=== PATIENT | female | born 1955 | race Caucasian/White ===

== ENCOUNTER 2024-08-31 23:12 | Inpatient (IN) | payer MEDICARE ==
[2024-08-31] MEDS ORDERED: Naloxone 0.4 MG/ML SDV IVPUSH PRN (23:14)
[2024-08-31 23:21] LABS: BASOPHILS ABSOLUTE AUTO 0.08 K/uL (0.00-0.10); BASOPHILS PERCENT AUTO 0.8 % (0.1-1.3); EOSINOPHILS ABSOLUTE AUTO 0.93 K/uL (0.00-0.40); EOSINOPHILS PERCENT AUTO 9.1 % (0.0-5.4); HEMATOCRIT 43.1 % (34.3-46.0); HEMOGLOBIN 14.4 g/dL (11.2-15.5); IMMATURE GRAN ABSOLUTE AUTO 0.06 K/uL (0.00-0.23); IMMATURE GRAN PERCENT AUTO 0.6 % (0.0-0.7); LYMPHOCYTES PERCENT AUTO 22.6 % (11.4-47.7); MEAN CORPUSCULAR HEMOGLOBIN 30.1 pg (31.6-35.5); MEAN CORPUSCULAR HGB CONC 33.4 g/dL (31.6-35.5); MEAN CORPUSCULAR VOLUME 90.2 fL (81.4-99.0); MONOCYTES ABSOLUTE AUTO 0.82 K/uL (0.20-0.90); NEUTROPHILS PERCENT AUTO 58.9 % (40.0-78.1); PLATELET COUNT,PLT 268 K/uL (130-375); RED BLOOD CELL COUNT 4.78 M/uL (3.77-5.24); WHITE BLOOD CELL COUNT,WBC 10.2 K/uL (3.2-11.0)
[2024-08-31] MEDS: HYDROmorphone 0.5 MG/0.5 ML Syringe IVPUSH ONE (23:28)
[2024-08-31] MEDS: Ondansetron 4 MG/2 ML SDV IVPUSH ONE (23:28)
[2024-08-31 23:48] LABS: LACTIC ACID 0.6 mmol/L (0.4-2.0)
[2024-08-31 23:55] LABS: A/G RATIO 0.9 (1.2-2.2); ALANINE AMINOTRANSFERASE,ALT 33 U/L (12-78); ALBUMIN 3.5 g/dL (3.4-5.0); ALKALINE PHOSPHATASE 75 U/L (46-116); ANION GAP 8.3 mmol/L (5.0-14.0); ASPARTATE AMNIOTRANSFERASE,AST 29 U/L (15-37); BILIRUBIN TOTAL 0.3 mg/dL (0.2-1.0); BLOOD UREA NITROGEN,BUN 34 mg/dL (7-18); C-REACTIVE PROTEIN 0.78 mg/dL (<0.50); CALCIUM 9.3 mg/dL (8.5-10.1); CARBON DIOXIDE,CO2 28 mmol/L (21-32); CHLORIDE,CL 108 mmol/L (100-108); CREATININE 1.3 mg/dL (0.6-1.0); EST CRCL DRUG DOSING (CG) 35.76 mL/min; ESTIMATED GFR 45 mL/min (>60); GLUCOSE RANDOM 99 mg/dL (74-106); POTASSIUM,K 3.8 mmol/L (3.6-5.2); PROTEIN TOTAL,TP 7.4 g/dL (6.4-8.2); SODIUM,NA 144 mmol/L (140-148)
[2024-08-31] MEDS: Sodium Chloride 0.9% 80 ML IV SCH (23:57)
[2024-08-31] MEDS: Iopamidol 612 MG/ML 100 ML Bottle IV PRN (23:58)
[2024-08-31] MEDS: Sodium Chloride 0.9% 10 ML Syringe FLUSH PRN (23:58)
[2024-09-01] MEDS: Sodium Chloride 0.9% 1,000 ML IV SCH (00:19)
[2024-09-01] MEDS: HYDROmorphone 0.5 MG/0.5 ML Syringe IVPUSH ONE ×2 (00:19→03:28)
[2024-09-01] MEDS: Prochlorperazine 10 MG/2 ML SDV IVPUSH ONE (03:58)
[2024-09-01] MEDS ORDERED: Ondansetron 4 MG/2 ML SDV ONE (04:18)
[2024-09-01] MEDS ORDERED: Glycopyrrolate 0.2 MG/ML 5 ML MDV ONE (04:18)
[2024-09-01] MEDS ORDERED: Succinylcholine 200 MG/10 ML MDV ONE (04:18)
[2024-09-01] MEDS ORDERED: Neostigmine Methylsulfate 10 MG/10 ML MDV ONE (04:18)
[2024-09-01] MEDS ORDERED: Propofol 200 MG/20 ML SDV ONE (04:18)
[2024-09-01] MEDS ORDERED: Dexamethasone 4 MG/ML SDV ONE (04:18)
[2024-09-01] MEDS ORDERED: Rocuronium 50 MG/5 ML Vial ONE (04:18)
[2024-09-01] MEDS ORDERED: fentaNYL 250 MCG/5 ML SDV ONE (04:18)
[2024-09-01] MEDS ORDERED: ceFAZolin 1 GM Vial ONE (04:26)
[2024-09-01] MEDS ORDERED: Lactated Ringers 1,000 ML ONE (04:48)
[2024-09-01] MEDS ORDERED: Naloxone 0.4 MG/ML SDV ONE (06:00)
[2024-09-01] MEDS: Lidocaine 2% 20 ML MDV ONE (06:05)
[2024-09-01] MEDS: Bupivacaine 0.5% 50 ML MDV ONE (06:05)
[2024-09-01] MEDS ORDERED: Benzocaine/Cetylpyridinium/Menthol Lozenge MUCMEM PRN (06:19)
[2024-09-01] MEDS ORDERED: Sodium Chloride 0.9% 10 ML Syringe IV PRN (07:48)
[2024-09-01] MEDS ORDERED: Morphine 2 MG/ML SYRINGE IV PRN (07:48)
[2024-09-01] MEDS ORDERED: Acetaminophen/oxyCODONE 325-5 MG Tab PO PRN (07:49)
[2024-09-01] MEDS ORDERED: Acetaminophen 325 MG Tab PO PRN (07:50)
[2024-09-01] MEDS: Dextrose 5%-Lactated Ringers 1,000 ML IV SCH (07:53)
[2024-09-01] MEDS: ceFAZolin 2 GM in Premix Bag 1 BAG IV ONE (07:56)
[2024-09-01] MEDS: Ondansetron 4 MG/2 ML SDV IVPUSH PRN (09:12)
[2024-09-01] MEDS: ceFAZolin 2 GM in Premix Bag 1 BAG IV SCH (12:40)
== END 2024-09-01 17:50 | disposition home or self-care (01) | DRG 331 ==
LOC: JP.ED 23:12 → JP.SDS 09-01 06:16 → JP.MS 09-01 06:19
PROVIDERS: ADMIT Surgery; ATTEND Surgery
PROC: 0WQF0ZZ Repair Abdominal Wall, Open Approach (ICD-10-PCS; principal; 2024-08-31)
PROC: 5A0935A Assistance with Respiratory Ventilation, Less than 24 Consecutive Hours, High Flow/Velocity Cannula (ICD-10-PCS; principal; 2024-08-31)
PROC: 0DS80ZZ Reposition Small Intestine, Open Approach (ICD-10-PCS; principal; 2024-08-31)
DX: K43.0 Incisional hernia with obstruction, without gangrene (principal); H54.7 Unspecified visual loss; I10 Essential (primary) hypertension; M19.90 Unspecified osteoarthritis, unspecified site; E86.0 Dehydration; E66.09 Other obesity due to excess calories; Z68.39 Body mass index [BMI] 39.0-39.9, adult; Z88.0 Allergy status to penicillin; Z79.899 Other long term (current) drug therapy; Z98.890 Other specified postprocedural states
CPT/HCPCS: 36415; 74177; 80053; 83605; 83690; 85025; 86140; 93005; J0330; J0665; J0690 ×2; J0780; J1100; J1596; J2003; J2310; J2405 ×2; J2704; J2710; J3010; J7030; J7120; Q9967; 93010; 96361; 96374; 96375; 96376; 99284; 99285-25; A9270-GY; J3490; J7121

== ENCOUNTER 2024-09-02 07:22 | Inpatient (IN) | payer MEDICARE ==
[2024-09-02] MEDS ORDERED: Naloxone 0.4 MG/ML SDV IVPUSH PRN ×2 (07:24→12:42)
[2024-09-02] MEDS ORDERED: Ondansetron 4 MG/2 ML SDV ONE ×2 (07:28→10:15)
[2024-09-02] MEDS ORDERED: HYDROmorphone 1 MG/ML Syringe ONE (07:29)
[2024-09-02 07:39] LABS: BASOPHILS ABSOLUTE AUTO 0.03 K/uL (0.00-0.10); BASOPHILS PERCENT AUTO 0.2 % (0.1-1.3); EOSINOPHILS PERCENT AUTO 0.1 % (0.0-5.4); HEMATOCRIT 40.2 % (34.3-46.0); HEMOGLOBIN 13.1 g/dL (11.2-15.5); IMMATURE GRAN ABSOLUTE AUTO 0.07 K/uL (0.00-0.23); IMMATURE GRAN PERCENT AUTO 0.5 % (0.0-0.7); LYMPHOCYTES PERCENT AUTO 11.7 % (11.4-47.7); MEAN CORPUSCULAR HEMOGLOBIN 29.6 pg (31.6-35.5); MEAN CORPUSCULAR HGB CONC 32.6 g/dL (31.6-35.5); MONOCYTES ABSOLUTE AUTO 0.87 K/uL (0.20-0.90); MONOCYTES PERCENT AUTO 6.4 % (3.3-12.6); NEUTROPHILS ABSOLUTE AUTO 11.07 K/uL (1.0-7.6); NEUTROPHILS PERCENT AUTO 81.1 % (40.0-78.1); PLATELET COUNT,PLT 246 K/uL (130-375); RED BLOOD CELL COUNT 4.42 M/uL (3.77-5.24); WHITE BLOOD CELL COUNT,WBC 13.7 K/uL (3.2-11.0)
[2024-09-02] MEDS: Sodium Chloride 0.9% 1,000 ML IV SCH (07:40)
[2024-09-02] MEDS: HYDROmorphone 1 MG/ML Syringe IVPUSH PRN (07:40)
[2024-09-02] MEDS: Ondansetron 4 MG/2 ML SDV IVPUSH ONE (07:40)
[2024-09-02 07:54] LABS: EOSINOPHILS ABSOLUTE AUTO 0.01 K/uL (0.00-0.40)
[2024-09-02 08:00] LABS: A/G RATIO 0.8 (1.2-2.2); ALANINE AMINOTRANSFERASE,ALT 58 U/L (12-78); ALBUMIN 3.1 g/dL (3.4-5.0); ALKALINE PHOSPHATASE 76 U/L (46-116); ANION GAP 8.3 mmol/L (5.0-14.0); ASPARTATE AMNIOTRANSFERASE,AST 43 U/L (15-37); BILIRUBIN TOTAL 0.3 mg/dL (0.2-1.0); BLOOD UREA NITROGEN,BUN 29 mg/dL (7-18); C-REACTIVE PROTEIN 0.66 mg/dL (<0.50); CARBON DIOXIDE,CO2 28 mmol/L (21-32); CHLORIDE,CL 108 mmol/L (100-108); CREATININE 1.2 mg/dL (0.6-1.0); EST CRCL DRUG DOSING (CG) 38.75 mL/min; ESTIMATED GFR 49 mL/min (>60); GLUCOSE RANDOM 94 mg/dL (74-106); MAGNESIUM 2.1 mg/dL (1.8-2.4); POTASSIUM,K 4.2 mmol/L (3.6-5.2); PROTEIN TOTAL,TP 6.8 g/dL (6.4-8.2); SODIUM,NA 144 mmol/L (140-148)
[2024-09-02] MEDS: Sodium Chloride 0.9% 10 ML Syringe FLUSH PRN (08:19)
[2024-09-02] MEDS: Iopamidol 612 MG/ML 100 ML Bottle IV PRN (08:21)
[2024-09-02] MEDS: Sodium Chloride 0.9% 80 ML IV SCH (08:21)
[2024-09-02 08:46] LABS: APPEARANCE,URINE CLEAR (CLEAR); BILIRUBIN,URINE NEGATIVE (NEGATIVE); COLOR,URINE YELLOW (YELLOW); GLUCOSE,URINE NEGATIVE (NEGATIVE); KETONES,URINE NEGATIVE (NEGATIVE); LEUKOCYTE ESTERASE,URINE TRACE (NEGATIVE); NITRITE,URINE NEGATIVE (NEGATIVE); OCCULT BLOOD,URINE NEGATIVE (NEGATIVE); PH,URINE 5.5 (5.0-8.0); PROTEIN,URINE NEGATIVE (NEGATIVE); UROBILINOGEN,URINE 0.2 EU/dL (0.2-1.0)
[2024-09-02 08:59] LABS: BACTERIA,URINE RARE; EPITHELIAL CELLS,URINE OCCASIONAL; MUCUS,URINE NOT SEEN; RBC,URINE 0-5 (0-5); WBC,URINE NOT SEEN (0-5)
[2024-09-02] MEDS ORDERED: Rocuronium 50 MG/5 ML Vial ONE (10:15)
[2024-09-02] MEDS ORDERED: Propofol 200 MG/20 ML SDV ONE (10:15)
[2024-09-02] MEDS ORDERED: Glycopyrrolate 0.2 MG/ML 5 ML MDV ONE (10:15)
[2024-09-02] MEDS ORDERED: Dexamethasone 4 MG/ML SDV ONE (10:15)
[2024-09-02] MEDS ORDERED: Succinylcholine 200 MG/10 ML MDV ONE (10:15)
[2024-09-02] MEDS ORDERED: Neostigmine Methylsulfate 10 MG/10 ML MDV ONE (10:15)
[2024-09-02] MEDS ORDERED: fentaNYL 250 MCG/5 ML SDV ONE (10:17)
[2024-09-02] MEDS: Bupivacaine 0.5% 50 ML MDV ONE (11:36)
[2024-09-02] MEDS: Lidocaine 2% 20 ML MDV INJECT ONE ×2 (11:37)
[2024-09-02] MEDS ORDERED: Benzocaine/Cetylpyridinium/Menthol Lozenge MUCMEM PRN (12:42)
[2024-09-02] MEDS ORDERED: fentaNYL 100 MCG/2 ML SDV IVPUSH PRN (12:42)
[2024-09-02] MEDS ORDERED: Naloxone 0.4 MG/ML SDV ONE (13:14)
[2024-09-02] MEDS ORDERED: fentaNYL 100 MCG/2 ML SDV ONE (13:15)
[2024-09-02] MEDS: Acetaminophen 325 MG Tab PO PRN (15:18)
[2024-09-02] MEDS: Lactated Ringers 1,000 ML IV SCH (15:21)
[2024-09-02] MEDS: Gabapentin 100 MG Cap PO ONE (15:21)
[2024-09-02] MEDS: tiZANidine 2 MG Tab PO PRN (20:31)
[2024-09-03 06:01] LABS: BASOPHILS PERCENT AUTO 0.2 % (0.1-1.3); EOSINOPHILS PERCENT AUTO 0.1 % (0.0-5.4); HEMATOCRIT 36.5 % (34.3-46.0); HEMOGLOBIN 11.9 g/dL (11.2-15.5); IMMATURE GRAN ABSOLUTE AUTO 0.04 K/uL (0.00-0.23); IMMATURE GRAN PERCENT AUTO 0.4 % (0.0-0.7); LYMPHOCYTES ABSOLUTE AUTO 1.37 K/uL (0.8-3.3); LYMPHOCYTES PERCENT AUTO 13.8 % (11.4-47.7); MEAN CORPUSCULAR HEMOGLOBIN 30.4 pg (31.6-35.5); MEAN CORPUSCULAR HGB CONC 32.6 g/dL (31.6-35.5); MEAN CORPUSCULAR VOLUME 93.1 fL (81.4-99.0); MONOCYTES ABSOLUTE AUTO 0.62 K/uL (0.20-0.90); MONOCYTES PERCENT AUTO 6.3 % (3.3-12.6); NEUTROPHILS ABSOLUTE AUTO 7.85 K/uL (1.0-7.6); NEUTROPHILS PERCENT AUTO 79.2 % (40.0-78.1); PLATELET COUNT,PLT 183 K/uL (130-375); RED BLOOD CELL COUNT 3.92 M/uL (3.77-5.24); WHITE BLOOD CELL COUNT,WBC 9.9 K/uL (3.2-11.0)
[2024-09-03 06:02] LABS: BASOPHILS ABSOLUTE AUTO 0.02 K/uL (0.00-0.10); EOSINOPHILS ABSOLUTE AUTO 0.01 K/uL (0.00-0.40)
[2024-09-03] MEDS: amLODIPine 5 MG Tab PO SCH (08:00)
[2024-09-03] MEDS: Hydroxychloroquine 200 MG Tab PO SCH (08:00)
[2024-09-03 10:40] LABS: ANION GAP 7.3 mmol/L (5.0-14.0); BLOOD UREA NITROGEN,BUN 24 mg/dL (7-18); CALCIUM 8.7 mg/dL (8.5-10.1); CARBON DIOXIDE,CO2 26 mmol/L (21-32); CHLORIDE,CL 108 mmol/L (100-108); ESTIMATED GFR 61 mL/min (>60); GLUCOSE RANDOM 113 mg/dL (74-106); MAGNESIUM 2.1 mg/dL (1.8-2.4); POTASSIUM,K 4.4 mmol/L (3.6-5.2); SODIUM,NA 141 mmol/L (140-148)
[2024-09-03] MEDS ORDERED: fentaNYL 50 MCG/ML SDV IVPUSH PRN (10:46)
[2024-09-03] MEDS: LORazepam 1 MG Tab PO ONE (11:35)
[2024-09-03] MEDS: Gadoteridol 279.3 MG/ML 20 ML SDV IV SCH (13:43)
[2024-09-03] MEDS: Docusate Sodium 100 MG Cap PO ONE (17:56)
[2024-09-03] MEDS: Dexamethasone 2 MG Tab PO SCH (20:17)
[2024-09-03] MEDS: Ondansetron 4 MG Tab.DIS PO PRN (21:51)
[2024-09-03] MEDS: Acetaminophen/oxyCODONE 325-5 MG Tab PO PRN (21:59)
[2024-09-04] MEDS: Calcium Carbonate 500 MG Tab.Chew PO PRN (06:41)
[2024-09-04] MEDS: Pantoprazole 40 MG Tab.CR PO PRN (07:39)
[2024-09-04] MEDS: Docusate Sodium 100 MG Cap PO PRN (08:26)
[2024-09-04] MEDS: Polyethylene Glycol 3350 Powder 17 GM Packet PO ONE (12:25)
[2024-09-04] MEDS: Pantoprazole 40 MG Tab.CR PO SCH (16:40)
[2024-09-04] MEDS: Dexamethasone 2 MG Tab PO SCH (16:40)
[2024-09-05] MEDS ORDERED: Sodium Phosphate,Monobasic/Sodium Phosphate,Dibasic Enema 133 ML Bottle RECTAL PRN (09:50)
[2024-09-05] MEDS: Bisacodyl 10 MG Supp RECTAL ONE (10:10)
[2024-09-05] MEDS: Polyethylene Glycol 3350 Powder 17 GM Packet PO ONE (10:10)
== END 2024-09-05 05:50 | disposition home or self-care (01) | DRG 337 ==
LOC: JP.ED 07:22 → JP.SDS 09:50 → JP.MS 12:33
PROVIDERS: ADMIT Surgery; ATTEND Surgery
PROC: 0DN80ZZ Release Small Intestine, Open Approach (ICD-10-PCS; principal; 2024-09-02 10:30)
DX: R10.9 Unspecified abdominal pain (principal); K46.0 Unspecified abdominal hernia with obstruction, without gangrene; M54.16 Radiculopathy, lumbar region; Z91.018 Allergy to other foods; H54.7 Unspecified visual loss; I10 Essential (primary) hypertension; M19.90 Unspecified osteoarthritis, unspecified site; Z88.0 Allergy status to penicillin; Z98.890 Other specified postprocedural states; Z88.8 Allergy status to other drugs, medicaments and biological substances; Z79.899 Other long term (current) drug therapy
CPT/HCPCS: 36415; 51702; 72132; 74177; 76377; 80053; 81001; 83605; 83690; 83735; 85025; 86140; 96361; 96365; 96375; 96376; 99285 ×2; J0330; J0665; J1100; J1171 ×2; J1596; J2003; J2405 ×2; J2704; J2710; J3010; J7030; Q9967; 72148; 72148-26; 74183; 74183-26; 80048; 99231; 99232; 99238; A9270-GY; A9579; J0690; J2310; J3490; J7120; J8540; Q0162